=== PATIENT | female | born 1990 | race African-American/Black ===

== ENCOUNTER 2019-04-10 03:34 | Inpatient (IN) | payer OTHER, MEDICAID ==
[2019-04-10] MEDS ORDERED: Penicillin G Potassium IV* 5,000,000 UNITS in NS 0.9% 100 ML* 100 ML IVPB ONE (04:48)
[2019-04-10] MEDS ORDERED: Lactated Ringers 1000 ML Bag* 1,000 ML IV ONE (04:48)
[2019-04-10] MEDS ORDERED: Buffered Lidocaine 1% SYRIN* 1 ML/SYRINGE INTRADERM ONE (04:48)
[2019-04-10] MEDS ORDERED: Lactated Ringers 1000 ML Bag* 1,000 ML IV SCH ×2 (05:00→15:00)
--- NOTE | 2019-04-10 05:08 | HP ---
General Information - Reason for Visit Patient reports contractions of increasing frequency and intensity since a little after midnight. Small amount bloody show - General Information Maternal Age: 28 Grav: 7 Para: 1 SAB: 0 IEA: 5 Estimated Due Date: 04/17/19 Determined By: Early Ultrasound Maternal Blood Type and Rh: O Positive - Results this Serology/RPR Result: Non-Reactive Rubella Result: Immune HBsAg Result: Negative HIV Result: Negative GBS Culture Result: Positive Past Medical History Delivery History: Hx Uncomplicated Vaginal Delivery Delivery History Comment: SVB, 2 hour labor 07/2013 Pertinent Past Medical History: See Records Past Medical History Comment: Depression Pertinent Past Surgical History: None Pertinent Family History: Non-Contributory Family History Comment: Sickle cell dz - Antepartal Records Antepartal Records: Reviewed, Complicated by: - Living in [facility]; care between two offices; THC use Review of Systems Constitutional: Uncomfortable CV Complaint: No Respiratory: Shortness of Breath: No Gastrointestinal: No Nausea/Vomiting, Normal Bowel Movement Genitourinary: No Dysuria, Spotting Musculoskeletal: Contractions Neurological: No Headache, No Visual Changes Movement: Normal Exam Allergies/Adverse Reactions: Allergies No Known Allergies Allergy (Verified 04/10/19 03:56) BP 126/81 T 97.6 HR 78 RR 20 O2 100 - Measurements Height: 5 ft 6 in Weight: 194 lb Weight in lbs: [id number] Body Mass Index (BMI): 31.3 Pre- Weight: 159 lb Weight Gained This : 35 lbs and 0 ozs - Exam Breast: Breast Exam Deferred CVA: No CVA Tenderness Extremities: No Edema Heart: Normal Rhythm/Heart Sounds HEENT: No Significant Findings Lungs: Clear Bilaterally Rectal: Rectal Exam Deferred Reflexes: DTR 2+, - - no clonus Thyroid: - - WNL on entry to care - Abdominal Exam Abdomen Exam: Non-Tender, Fundal Height Consistent with Dates - Ultrasound/Biophysical Profile Ultrasound Status: Not Done Targeted Exam Findings Estimated Weight: 7lb Cervical Exam: 4cm Effacement: 80% Station: -2 Presenting Part: Vertex Membrane Status: Bulging Bleeding/Discharge: None EFM Findings - External Monitor Findings Baseline Heart Rate: 130 External Monitor Findings: Accelerations Present, No Pattern of Variable or Late Decelerations, Variability Moderate Contractions: Regular, Moderate, 45-90 Seconds Contraction Frequency: Q 4-5 min Assessment/Plan - Assessment IUP @ 39+1 weeks gestation in early labor. IBOW. No evidence acidemia. - Obstetrical Risk Factors Obstetrical Risk Factors: GBS Positive, Psychosocial Issues - Plan Plan: Admit - Anticipate Vaginal Delivery Plan Comment: Admit to L&D. Eat and drink as desired. Will initiate IV for abx prophylaxis for GBS. Patient will likely want to avoid any medications for pain. May consider tub. Advised rest vs movement as tolerated. Anticipate SVB. Will plan for social work consult as patient may need assistance for childcare during PP stay for older child. - Date/Time of Admission Date of Admission: 04/10/19 Time of Admission: 04:46
[2019-04-10 05:53] LABS: Urine Benzodiazepine Screen None Detected (None Detect); Urine Opiates Screen None Detected (None Detect)
[2019-04-10 06:13] LABS: ABS Lymphocytes 1.8 10^3/ul (1.0-4.8); ABS Monocytes 0.5 10^3/ul (0-0.8); ABS Neutrophils 4.7 10^3/ul (1.5-7.7); Eosinophil % 0.6 %; Hematocrit 31 % (35-47); Mean Corpuscular HGB Conc 35 g/dL (31-36); Mean Corpuscular Hemoglobin 33 pg (27-31); Mean Corpuscular Volume 94 fL (80-97); Mean Platelet Volume 8.7 fL (7.4-10.4); Nucleated Red Blood Cells % 0.1; Platelet Count 200 10^3/uL (150-450); Red Cell Distribution Width 13 % (10-15); White Blood Count 7.1 10^3/uL (3.5-10.8)
[2019-04-10] MEDS ORDERED: fentaNYL* 50 MCG/ML 2 ML VIAL (100 MCG VIAL) IV SLOW PU ONE ×2 (09:36→11:53)
--- NOTE | 2019-04-10 09:43 | PN ---
Progress Note - Progress Note Date of Service: 04/10/19 Note: S: Assuming care of Linda Arias a 28 yo admitted at term in labor. Pt reports UCs becoming increasingly uncomfortable. Desires amniotomy and something for pain "not an epidural". A friend just came and collected her daughter and will watch her until pt's family arrives. O: BP 123/89 HR 85 T98 RR 18 FHT 130bpm. Moderate variability. +Accel. Occ early decel. UCs q3-4 min VE 5cm/90%/vtx -2, AROM to clear fluid A: IUP at 39-1/7 in labor Cat II tracing, doubt metabolic acidemia GBS +, receiving abx prophylaxis P: PARQ amniotomy. Pt agrees. Done. PARQ IV Fentanyl vs. Nitrous Oxide. Pt opts for IV Fentanyl. Order given. Will continue to monitor. Anticipate
[2019-04-10] MEDS: Penicillin G Potassium IV* 2,500,000 UNITS in NS 0.9% 100 ML* 100 ML IVPB SCH ×2 (09:51→16:30)
--- NOTE | 2019-04-10 11:30 | PN ---
Progress Note - Progress Note Date of Service: 04/10/19 Note: S: Pt able to nap between UCs s/p IV Fentanyl. Requesting trial in tub but notes increased pressure with UCs so desires VE first O: VSS, afebrile FHT 115bpm. Moderate variability. +Accels. Occ early type decels UCs q 3-4 min VE 7-8/100%/vtx -1, clear fluid A: IUP at 39-1/7 in labor Cat II FHT, doubt metabolic acidemia GBS +, full abx prophylaxis in labor P: Ok to use tub. Bedside support given. Anticipate trial of pushing soon.
--- NOTE | 2019-04-10 12:53 | PN ---
Progress Note - Progress Note Date of Service: 04/10/19 Note: S: Pt out of tub. Requesting pain relief, not an epidural O: VSS, afebrile FHT 125bpm. Moderate variability. +Accels. No decels UCs q 3-4 VE 9cm/100%/vtx -1, caput 0 A: IUP at 39-1/7 in labor No evidence of metabolic acidemia GBS+, full abx prophylaxis given P: PARQ nitrous oxide. Pt desires. Anticipate trial of pushing soon
[2019-04-10] MEDS ORDERED: Oxytocin in LR* 20 UNITS/1,000 ML BAG IVPB ONE (13:49)
--- NOTE | 2019-04-10 14:40 | PROCNOTE ---
[facility]: Delivery Note - Delivery A Date of : 04/10/19 Time of : 14:06 [place] Sex: Female Score 1 Minute: 9 Score 5 Minutes: 9 Gestational Age in Weeks and Days at Delivery: 39 Weeks and 0 Days Delivery Method: Spontaneous Vaginal Labor: Spontaneous Did Patient attempt ?: N/A, No Previous Amniotic Fluid: Clear Estimated Blood Loss: 300 Anesthesia/Analgesia: IM/IV - IV Fentanyl x 1 dose, Nitrous-Labor Delivered By: Autumn Torres - Nursery Level of Nursery: Regular/Bedside - Perineum Perineal Injury: None/Intact Perineal Repair: None - Events Delivery Events of Note: Pitocin Only After Delivery - Additional Delivery Notes Additional Delivery Notes: Pt admitted in labor. Received antibiotic prophylaxis for known GBS positive status. Amniotomy to clear fluid led to onset active labor with expected progression to complete. Length of active phase 11 hours, 29 min. Pushed x 12 min. liveborn female. Slow, controlled delivery of head. OA to ROP. Tight transverse shoulders resolved with Katiana position and Wood's Corkscrew maneuver. Tight nuchal cord x 1. somersaulted through. [place] initially stunned. Responded well to tactile stimulation and delayed cord clamping. HR>110bpm. Delivered to maternal abdomen. Apgars 9/9. Cord clamped x 2 and cut by pt once pulsations ceased. Spontaneous delivery intact placenta. Membranes complete. Fundus firm to massage with minimal bleeding. IV pitocin infusing. Perineum intact. No repair needed as above. EBL 300mL. At time of note mother and infant in stable condition. Planning to both bottle and breast feed per preference.
[2019-04-10] MEDS ORDERED: Dibucaine 1% 28.35 GM TUBE PR PRN (14:41)
[2019-04-10] MEDS ORDERED: Witch Hazel PAD* JAR TOPICAL PRN (14:41)
[2019-04-10] MEDS ORDERED: Glycerin ADULT SUPP PR PRN (14:41)
[2019-04-10] MEDS ORDERED: Acetaminophen TAB* 325 MG PO PRN (14:41)
[2019-04-10] MEDS ORDERED: Oxytocin in LR* 20 UNITS/1,000 ML BAG IVPB SCH (15:00)
[2019-04-10] MEDS ORDERED: Simethicone TAB* 80 MG TAB.CHEW PO SCH (17:30)
[2019-04-10] MEDS: Ibuprofen TAB* 600 MG PO SCH ×2 (18:17→20:24)
[2019-04-10] MEDS: Docusate CAP* 100 MG PO SCH (20:24)
[2019-04-11] MEDS: Ibuprofen TAB* 600 MG PO SCH ×3 (02:17→18:36)
[2019-04-11 08:44] LABS: ABS Basophils 0.1 10^3/ul (0-0.2); ABS Eosinophils 0.1 10^3/ul (0-0.6); ABS Lymphocytes 2.1 10^3/ul (1.0-4.8); ABS Monocytes 0.9 10^3/ul (0-0.8); Eosinophil % 0.4 %; Hematocrit 33 % (35-47); Hemoglobin 11.6 g/dL (12.0-16.0); Lymphocyte % 13.1 %; Mean Corpuscular HGB Conc 35 g/dL (31-36); Mean Corpuscular Hemoglobin 33 pg (27-31); Mean Corpuscular Volume 93 fL (80-97); Mean Platelet Volume 8.2 fL (7.4-10.4); Platelet Count 217 10^3/uL (150-450); Red Blood Count 3.56 10^6 /uL (3.70-4.87); Red Cell Distribution Width 13 % (10-15); White Blood Count 16.2 10^3/uL (3.5-10.8)
[2019-04-11] MEDS: Docusate CAP* 100 MG PO SCH ×3 (08:55→21:08)
[2019-04-11] MEDS ORDERED: Ferrous Gluconate TAB* 324 MG TAB PO SCH (09:00)
[2019-04-12] MEDS: Ibuprofen TAB* 600 MG PO SCH ×2 (00:07→08:34)
[2019-04-12 08:09] VITALS: BP 131/83
[2019-04-12] MEDS: Docusate CAP* 100 MG PO SCH (08:32)
== END 2019-04-12 11:30 | disposition home or self-care (01) | DRG 807 ==
LOC: MCHOBOUT 03:34 → MCHOB 04:46
PROVIDERS: ADMIT Midwife; ATTEND Midwife
PROC: 10E0XZZ Delivery of Products of Conception, External Approach (ICD-10-PCS; principal; 2019-04-10)
PROC: 10907ZC Drainage of Amniotic Fluid, Therapeutic from Products of Conception, Via Natural or Artificial Opening (ICD-10-PCS; 2019-04-10)
DX: O99.824 Streptococcus B carrier state complicating childbirth (principal); Z37.0 Single live birth; O99.344 Other mental disorders complicating childbirth; F99 Mental disorder, not otherwise specified; O69.81X0 Labor and delivery complicated by cord around neck, without compression, not applicable or unspecified; O76 Abnormality in fetal heart rate and rhythm complicating labor and delivery; Z3A.39 39 weeks gestation of pregnancy
CPT/HCPCS: 36415; 80307; 85025; 86850; 86900; 86901; 99282; A9270-GY; J2540; J3010